=== PATIENT | female | born 1965 | race Caucasian/White ===

== ENCOUNTER 2016-12-23 18:22 | Observation (INO) | payer MEDICAID ==
[~2016-12-23] VITALS: Ht 167.6 cm; Wt 77.4 kg
--- NOTE | ~2016-12-23 | CR72 ---
[facility] A Service [facility] RADIOLOGY TEXT RESULTS PATIENT: SILVIANO NASCIMENTO LOCATION: [place] [address] : [birth year] UNIT #: [id number] AGE: [address]: Cha Henderson MD SEX: F ORDER DR: [id number] [place] [address] [id number] I MR#: [id number] Acc #: [id number] NAME: SILVIANO NASCIMENTO : 1965 SEX: F STUDY DATE/TIME: 12/23/2016 20:04 UNIT: SEDOF ROOM: [facility] STUDY DESCRIPTION: CR Chest Single View Portable Attending Physician: Savanna Silvestre M.D. Ordering Physician: Paco العراقي M.D. Primary Care Physician: Lupillo Orr M.D. MEDICAL IMAGING REPORT This report is preliminary unless electronic signature is present. EXAM Single view of the chest dated 12/23/2016. COMPARISON Single-view chest dated 02/26/2014. HISTORY Dizziness, chest pain, clammy, hot flashes and frontal headaches for 3 days. FINDINGS Single view of the chest was obtained. A single AP portable view of the chest shows both lungs to be clear. The heart is normal in size. The mediastinal contour is normal. No significant bone abnormalities are seen. IMPRESSION Normal portable chest. Dictated by... Maciej Elizalde M.D. THIS IS AN ELECTRONICALLY VERIFIED REPORT Maciej Elizalde M.D. at 12/24/2016 6:26 PM CPR/psc TD: 12/24/2016 01:46 JOB #: [id number] MEDICAL IMAGING REPORT [facility] A Service [facility] RADIOLOGY TEXT RESULTS PATIENT: SILVIANO NASCIMENTO LOCATION: [facility] : [birth year] UNIT #: [id number] AGE: [address]: Cha Henderson MD SEX: F ORDER DR: Page 1 of 1
--- NOTE | ~2016-12-23 | MR17 ---
[facility] A Service of [facility] RADIOLOGY TEXT RESULTS PATIENT: SILVIANO NACSIMENTO LOCATION: [address] 555[address]01 : [birth year] UNIT #: [id number] AGE: [address]: Cha Henderson MD SEX: F ORDER DR: [id number] [facility] [address] [place], [place] [address] [id number] I MR#: [id number] Acc #: [id number] NAME: SILVIANO NASCIMENTO : 1965 SEX: F STUDY DATE/TIME: 12/24/2016 16:02 UNIT: B ROOM: [facility] STUDY DESCRIPTION: MR Brain WWo Contrast Attending Physician: Cha Henderson M.D. Ordering Physician: Savanna Silvestre M.D. Primary Care Physician: Lupillo Orr M.D. MRI CENTER REPORT This report is preliminary unless electronic signature is present. EXAM Brain MRI with and without. HISTORY Vertigo. 51-year-old female presents with vertigo to the emergency room 12/23/2016. Patient had nausea, vertigo and unsteadiness on feet for 6 days. No known injury. History of essential hypertension and 4 days of frontal headaches. COMMENT MRI of the brain was performed prior to and following intravenous administration of 16 mL of MultiHance. Head CT comparison is from 12/23/2016. There is no evidence for a recent ischemic insult on the diffusion series. Midline structures are unremarkable. There is no extraaxial fluid collection. The visualized paranasal sinuses are clear. There is minor fluid or inflammatory change in the mastoid air cells. There is no MRI evidence for intracranial hemorrhage. The major arterial intracranial flow voids are maintained. There is iqlh-zh-[id number] white matter signal abnormality, which is nonspecific. It is probably due to small vessel disease particularly since there is a history of essential hypertension and coronary artery disease, but please correlate further clinically. There is no evidence for pathologic intracranial enhancement. No intracranial mass lesion or mass effect. IMPRESSION 1. No evidence for a recent ischemic insult on the diffusion series. 2. Probable sequelae of small vessel disease. 3. Small amount of fluid or inflammatory change, mastoid air cells. STAT * RESULT [facility] A Service of [facility] RADIOLOGY TEXT RESULTS PATIENT: SILVIANO NASCIMENTO LOCATION: [facility] 555-01 : [birth year] UNIT #: [id number] AGE: [address]: Cha Henderson MD SEX: F ORDER DR: Dictated by... Lisandra Wynne M.D. THIS IS AN ELECTRONICALLY VERIFIED REPORT Lisandra Wynne M.D. at 12/29/2016 5:40 PM CHUCKY/adis TD: 12/29/2016 14:28 JOB #: [id number] MRI CENTER REPORT Page 1 of 1 COPY
--- NOTE | ~2016-12-23 | EKG ---
PATIENT: SILVIANO NASCIMENTO UNIT #: [id number] Ventricular Rate: 66 BPM Atrial Rate: 66 BPM P-R Interval: 154 ms QRS Duration: 88 ms Q-T Interval: 378 ms QTC Calculation(Bezet): 396 ms P [place]: -17 degrees Calculated R [place]: -14 degrees Calculated T [place]: 117 degrees Diagnosis Line: Normal sinus rhythm Diagnosis Line: Cannot rule out Anterior infarct , age Diagnosis Line: undetermined Diagnosis Line: Abnormal ECG Diagnosis Line: When compared with ECG of 28-FEB-2014 06:08, Diagnosis Line: Nonspecific T wave abnormality now evident in Diagnosis Line: Lateral leads Diagnosis Line: Confirmed by JOLENE MARSHALL MD ([id number]) on Diagnosis Line: 12/25/2016 8:03:57 AM INTERPRETING MD: JOANNA MCKOY
--- NOTE | ~2016-12-23 | CO ---
Unit #: [id number] #: [id number] Patient: SILVIANO NASCIMENTO [id number] [address] [place], [place] [address] [id number] I MR#: [id number] NAME: SILVIANO NASCIMENTO ROOM: 555 Age: 51 Sex: F Admission Date: 12/24/2016 : 1965 Attending Physician: Cha Henderson M.D. Primary Care Physician: Lupillo Orr M.D. Consultation Date: 12/24/2016 CONSULTATION REPORT REASON FOR CONSULTATION Intermittent chest pain. HISTORY OF PRESENTING ILLNESS This is a 51-year-old female known to Dr. Hale with a prior history of coronary artery disease status post multiple PCIs and stents in the past, diabetes mellitus type 2, hypertension and hyperlipidemia. Her last cardiac cath in January 2014 showed left circumflex 70% to 80% at the ostium, OM-1 with patent stent, LAD mid 40%, proximal RCA 90% and mid RCA 80% with patent stents to the distal PDA and LV branch of RCA. At that time she had 2 stents placed to her RCA. She also has a history of tobacco abuse and chronic low back pain. She presented to the ER with reports of fatigue and weakness since Wednesday. States she spent all weekend in bed. She reports vertigo, as well as intermittent chest pain described as sharp, nonradiating chest pain lasting less than 1 minute. She states the pain occurs with activity and is accompanied with some diaphoresis and nausea. States before this weekend she was fairly active and does not usually have chest pain or shortness of breath with activities. She denies syncope, palpitations, orthopnea or PND. Currently she is chest pain free. PAST MEDICAL HISTORY 1. Coronary artery disease status post multiple PCIs and stents. 2. Diabetes mellitus type 2. 3. Hypertension. 4. Hyperlipidemia. 5. Cath January 2014 with stents x2 to RCA (see results above). 6. Tobacco abuse. 7. Chronic low back pain. PAST SURGICAL HISTORY 1. . 2. Right hand surgery. SOCIAL HISTORY She lives with her boyfriend. Smokes 1 pack per day. She denies illicit drug use. States she rarely drinks alcohol. FAMILY HISTORY Her mother and father both had coronary artery disease. REVIEW OF SYSTEMS Unit #: [id number] #: [id number] Patient: SILVIANO NASCIMENTO Positive for tiredness, fatigue, weakness, lightheadedness, cough with small amount of sputum, nausea, decreased appetite, diaphoresis, and intermittent sharp chest pain with activity. PHYSICAL EXAMINATION VITAL SIGNS: Temp 98.6, heart rate 78, respiratory rate 18, blood pressure 127/66. HEENT: Head is atraumatic and normocephalic. Pupils are equal and reactive to light. Mucous membranes are moist and intact. NECK: Supple. Trachea is midline. No JVD. LUNGS: Clear. Diminished in bases. Nonlabored respirations. CARDIOVASCULAR: S1, S2. Regular rate and rhythm. No significant murmurs, rubs or gallops. ABDOMEN: Soft, nontender, nondistended. Bowel sounds are active. EXTREMITIES: Pulses are palpable. No pedal edema. No cyanosis. NEUROLOGIC: Alert and oriented x3. Follows all commands equally and moves extremities without difficulty. DIAGNOSTIC STUDIES LABORATORY RESULTS: Sodium 130, potassium 3.7, chloride 97, BUN 14, creatinine 0.6, glucose 289. Hemoglobin 16.8, hematocrit 48.2, white blood cell count 7.6, platelets 271. TSH 5.27. Dckat-tw-fpqo troponin less than 0.05, and repeat troponin was less than 0.03. IMAGING STUDIES: CT of the head was normal. Chest x-ray showed no acute findings. CARDIOVASCULAR STUDIES: EKG shows sinus rhythm with a ventricular rate of 66 and nonspecific T wave abnormalities. ASSESSMENT 1. Chest pain, atypical for significant ischemic heart disease. 2. Hyponatremia secondary to elevated glucose. 3. Poorly controlled diabetes mellitus. 4. Questionable viral (1) like illness. 5. Coronary artery disease status post PCI and stent to RCA in 2013; 80% ostial left circumflex not dilated. 6. Lumbar spine disk disease. 7. COPD. 8. Hypertension. 9. Hyperlipidemia. 10. Diabetes mellitus. 11. Tobacco abuse. PLAN 1. Walking Lexiscan Cardiolite stress test. 2. Check fasting lipid profile. 3. Aspirin daily. 4. Plavix daily, plan for lifetime treatment with Plavix and aspirin due to diabetes and ostial left circumflex disease that cannot be treated with PCI. 5. Check a UA. 6. Discontinue pravastatin and start Lipitor. 7. Discontinue nitro paste. 8. Add Imdur 30 mg p.o. daily. 9. Advise smoking cessation. 10. We will plan to change Invokana to Jardiance at discharge to further Unit #: [id number] #: [id number] Patient: SILVIANO NASCIMENTO reduce risk of mortality. Dictated by... Glenys Blue APRN for Sharon Whitley TD: 12/25/2016 09:15 JOB #: [id number] CONSULTATION REPORT Page 1 of 1 X X CONSULTATION REPORT
--- NOTE | ~2016-12-23 | ST ---
Unit #: [id number] #: [id number] Patient: SILVIANO NASCIMENTO [id number] [address] [address] [id number] I MR#: [id number] NAME: SILVIANO NACSIMENTO : 1965 SEX: F STUDY DATE/TIME: 12/24/2016 UNIT: C5B ROOM: [facility] STUDY DESCRIPTION: Lexiscan stress test Attending Physician: Cha Henderson M.D. Primary Care Physician: Lupillo Orr M.D. CARDIOLOGY REPORT PROCEDURE PERFORMED EKG portion of a Lexiscan Cardiolite stress test. REASON FOR EXAM Chest pain with known history of coronary artery disease status post multiple PCIs and stents. DISCUSSION Baseline EKG reveals sinus rhythm with a ventricular rate of 60 beats per minute. No acute ST or T wave changes noted. Possible early repolarization. A total of 0.4 mg of Lexiscan was injected per protocol, followed by Cardiolite. The patient had chest pain, rated 3/10, which was described as tightness. There was shortness of breath. The pain and shortness of breath resolved in recovery. There were no ST or T wave changes to suggest ischemia. There were no sustained arrhythmias noted. The maximal heart rate was 79 beats per minute with a maximal blood pressure of 190/92 mmHg. The patient's blood pressure improved to 138/75 mmHg in recovery. IMPRESSION 1. Negative EKG portion of Lexiscan Cardiolite stress test. 2. The patient complained of chest pain, described as tightness, rated a 3/10. Chest pain resolved in recovery. 3. There were no ST or T wave changes to suggest ischemia. 4. There were no sustained arrhythmias noted. 5. Please correlate with Cardiolite images. Dictated by... Kyleigh Sparks APRN for Sharon Martinez TD: 12/24/2016 12:18 JOB #: [id number] Unit #: [id number] #: [id number] Patient: SILVIANO NASCIMENTO CARDIOLOGY REPORT Page 1 of 1 X CARDIOLOGY REPORT
--- NOTE | ~2016-12-23 | HP ---
Unit #: [id number] #: [id number] Patient: SILVIANO NASCIMENTO [id number] [address] [place], [place] [address] [id number] I MR#: [id number] NAME: SILVIANO NASCIMENTO ROOM: 555 Age: 51 Sex: F Admission Date: 12/23/2016 : 1965 Attending Physician: Savanna Silvestre M.D. Primary Care Physician: Lupillo Orr M.D. HISTORY AND PHYSICAL CHIEF COMPLAINT Chest pain and vertigo with accelerated hypertension. HISTORY This pleasant 51-year-old female with CAD, status post multivessel PCI and stents with normal ejection fraction, AODM, hypertension, was sent from [facility] emergency department for chest pain and vertigo. Patient states that she was well until about five days prior to admission when she began to experience postural vertigo worse with movement of her head. Denies any other neurologic symptoms with the vertigo, except for a frontal headache. Over the past five days has been experiencing multiple episodes of sharp, nonradiating substernal chest pain with diaphoresis and nausea lasting less than a minute, worse with exertion. She talked with her physician who told her to go to an emergency department for further workup and possible MRI. When she presented to [facility] ER, her blood pressure was 94/90. EKG does not show active ischemia, cardiac markers are negative. She was given aspirin and sent to this facility for further workup and treatment. Her current neurologic examination is normal. Head CT is negative. PAST MEDICAL HISTORY 1. CAD, status post multivessel PCI and stent with normal ejection fraction followed by Dr. Hale. 2. Essential hypertension. 3. Hyperlipidemia. 4. AODM x8 years. 5. . 6. Right hand surgery. ALLERGIES Codeine. HOME MEDICATIONS 1. Flexeril 10 mg t.i.d. p.r.n. 2. Plavix 75 mg daily. 3. Lisinopril 10 mg daily. 4. Metformin 1,000 mg b.i.d. 5. Lopressor 25 mg b.i.d. 6. Pravachol 40 mg q.h.s. FAMILY HISTORY Strongly positive for premature coronary artery disease. Unit #: [id number] #: [id number] Patient: SILVIANO NASCIMENTO SHAHRAM SOCIAL HISTORY The patient lives with her . She smokes about a pack per day of tobacco, seldom drinks alcohol. Would like to stop smoking. REVIEW OF SYSTEMS Notable for chest pain, feeling hot and having malaise, vertigo, hypertension, diabetes. Hyperlipidemia, tobacco use, CAD, above mentioned surgeries. All other systems were reviewed and otherwise negative. PHYSICAL EXAMINATION GENERAL: Pleasant 51-year-old moderately obese female currently in no acute distress. VITAL SIGNS: Current blood pressure is 181/81, temperature 98.1, pulse 65, respirations 14, O2 saturation is 99% on room air. HEENT: Eyes - PERRLA, extraocular muscles are intact. Pharynx is benign. TMs are clear. There is a little bit of cerumen but the TM itself looks to be normal. NECK: Supple without adenopathy, thyromegaly or carotid bruits. CHEST: Clear. CARDIAC: Normal S1 and S2 without S3, S4, or murmur. ABDOMEN: Bowel sounds are present. No hepatosplenomegaly, tenderness or masses. EXTREMITIES: Without clubbing, cyanosis or edema. Pedal pulses are present. SKIN: Reveals a rash both confluent but also papular in some areas, folliculitis as well. NEUROLOGIC: Patient is awake, alert and oriented. Her cranial nerves are intact. She has +5/5 strength throughout. Normal rapid alternating movements. Normal vakoko-pe-kzxe. Negative pronator drift. DIAGNOSTIC STUDIES ADMISSION LABS: Hematocrit is 48.2, normal white count, platelet count, and coags. SMA 12 - glucose is 289, sodium 130, which corrects to about 134 or 135, chloride is 97. Normal TSH. Cardiac markers are negative. IMAGING STUDIES: Chest x-ray - no acute disease. Head CT - no acute disease. CARDIOLOGY STUDIES: EKG - sinus rhythm, rate 66, fairly normal appearing. ASSESSMENT 1. Somewhat atypical chest pain but patient has known CAD and is status post multivessel PCI and stent with normal ejection fraction. 2. Accelerated hypertension. 3. Postural vertigo likely inner ear pathology. 4. AODM with hyperglycemia. 5. Tobacco use. 6. Hyperlipidemia. PLANS 1. Add aspirin and nitropaste to Plavix and current cardiac medicines. 2. Increase lisinopril and add p.r.n. hydralazine. 3. IV fluids and Antivert, will obtain MRI of the brain in the morning. 4. Serial cardiac enzymes, consult cardiology. 5. Smoking cessation counseling. 6. SCDs for DVT prophylaxis. Unit #: [id number] #: [id number] Patient: SILVIANO NASCIMENTO Dictated by Savanna Silvestre M.D. AML/ts TD: 12/24/2016 05:38 JOB #: [id number] HISTORY AND PHYSICAL Page 1 of 1 X Savanna Silvestre MD X HISTORY AND PHYSICAL
--- NOTE | ~2016-12-23 | CT71 ---
[facility] A Service [facility] RADIOLOGY TEXT RESULTS PATIENT: SILVIANO NASCIMENTO LOCATION: [place] [address] : [birth year] UNIT #: [id number] AGE: [address]: Cha Henderson MD SEX: F ORDER DR: [id number] [place] [id number] I MR#: [id number] #: [id number] NAME: SILVIANO NASCIMENTO : 1965 SEX: F STUDY DATE/TIME: 12/23/2016 20:14 UNIT: SEDOF ROOM: [facility] STUDY DESCRIPTION: CT Head Wo Contrast Attending Physician: Savanna Silvestre M.D. Ordering Physician: Paco العراقي M.D. Primary Care Physician: Lupillo Orr M.D. MEDICAL IMAGING REPORT This report is preliminary unless electronic signature is present. EXAM CT head without contrast dated 12/23/2016. COMPARISON CT head without contrast dated 05/16/2008. HISTORY Dizziness, chest pain, clammy, hot flashes and frontal headaches for [address] head was obtained without contrast in the axial plane as per the protocol. This CT exam was performed with one or more of the following radiation dose reduction techniques: Automatic exposure control, adjustment of mA and/or kV according to patient size, and iterative reconstruction. Axial noncontrast images were obtained from the skull base to the vertex. Ventricular size and configuration are normal. There is no evidence of acute infarct or hemorrhage. There are no extraaxial fluid collections. No mass lesion or mass effect is seen. There are no skull fractures. Nasal septum is deviated to the left. IMPRESSION Normal noncontrast head CT. Dictated by... [facility] A Service [facility] RADIOLOGY TEXT RESULTS PATIENT: SILVIANO NASCIMENTO LOCATION: [facility] : [birth year] UNIT #: [id number] AGE: [address]: Cha Henderson MD SEX: F ORDER DR: Maciej Elizalde M.D. THIS IS AN ELECTRONICALLY VERIFIED REPORT Maciej Elizalde M.D. at 12/24/2016 6:26 PM CPR/psc TD: 12/24/2016 02:38 JOB #: [id number] MEDICAL IMAGING REPORT Page 1 of 1
--- NOTE | ~2016-12-23 | TH ---
Unit #: [id number] #: [id number] Patient: SILVIANO NASCIMENTO [id number] [address] [address] [id number] I MR#: [id number] NAME: SILVIANO NASCIMENTO : 1965 SEX: F STUDY DATE/TIME: 12/24/2016 UNIT: C5B ROOM: [facility] STUDY DESCRIPTION: Lexiscan stress test - Nuclear Attending Physician: Cha Henderson M.D. Primary Care Physician: Lupillo Orr M.D. CARDIOLOGY REPORT PROCEDURE PERFORMED Lexiscan Cardiolite stress test - Nuclear portion. PROCEDURE Using technetium 99m-labeled Cardiolite, rest and stress SPECT images were obtained. Multiple SPECT images were obtained in various views, including horizontal and vertical long axis and short axis views of the left ventricle. Images were obtained by gated SPECT method. The patient was administered 9.97 mCi of Cardiolite at rest. The patient was administered 31.4 mCi of Cardiolite after Lexiscan infusion was completed. On the stress images, there is normal perfusion noted. The rest images show normal perfusion. Comparing the rest and stress images, there is no stress-induced ischemia noted. The left ventricular ejection fraction is calculated to be 78%. There is no focal wall motion abnormality seen. CONCLUSION 1. No stress-induced ischemia noted. 2. The left ventricular ejection fraction is calculated to be 78%. 3. There is no focal wall motion abnormality seen. 4. Normal Lexiscan Cardiolite stress test. Dictated by... Sharon Martinez/mayo TD: 12/24/2016 14:25 JOB #: [id number] CARDIOLOGY REPORT Page 1 of 1 X Kristin Marley MD <ELECTRONICALLY SIGNED> 01/21/17 1524 CARDIOLOGY REPORT
--- NOTE | ~2016-12-23 | DS ---
Unit #: [id number] #: [id number] Patient: SILVIANO VALENCIA [id number] [address] [address] [id number] I MR#: [id number] NAME: SILVIANO VALENCIA ROOM: 555 Age: 51 Sex: F Admission Date: 12/24/2016 : 1965 Discharge Date: 12/24/2016 Attending Physician: Cha Henderson M.D. Primary Care Physician: Lupillo Orr M.D. DISCHARGE SUMMARY PRINCIPAL DIAGNOSES 1. Musculoskeletal chest pain with negative walking Lexiscan Cardiolite. 2. Benign paroxysmal positional vertigo. 3. Coronary artery disease. 4. Diabetes mellitus type 2, noninsulin requiring and uncontrolled. 5. Hypertension. 6. Hyperlipidemia. 7. Pseudohyponatremia secondary to hyperglycemia. 8. Overweight. 9. Tobaccoism. 10. Accelerated hypotension to hypertension. CONSULTANTS Dr. Hale, cariology. PROCEDURES PERFORMED Walking Cardiolite stress test which was negative for ischemia. DIAGNOSTIC DATA IMAGING: CT scan of the head without contrast on 12/23/2016 which was normal. Chest x-ray on 12/23/2016 which was also normal. MRI of the brain with and without contrast is currently pending. CLINICAL HISTORY/HOSPITAL COURSE Ms. Valencia is a nice 51-year-old female who presented to the emergency department with a 5-day history of dizziness described as a combination of both vertigo and lightheadedness with changes in position and/or turning of the head. The patient's symptoms had progressed over the past four days and last night she subsequently developed some associated sharp stabbing chest pain. Please refer to history and physical for further details. cardiac workup in the emergency department was negative and the patient was placed in observation for further evaluation. Dr. Hale was consulted and the patient underwent stress test which was negative. Cardiac markers also remained negative. She will be discharged home on medications as outlined below. In regard to the patient's dizziness, she was placed on p.r.n. meclizine. MRI of the brain is still currently pending, but based upon history I suspect this represents an inner ear etiology. Anticipate if MRI is Unit #: [id number] #: [id number] Patient: SILVIANO VALENCIA SHAHRAM negative the patient will be discharged home later today. The patient was also found to have uncontrolled hyperlipidemia and her Lipitor was increased. She was also placed on Imdur and Plavix. She can be discharged home later today if MRI is negative. DISCHARGE CONDITION Stable. DISPOSITION Discharge to home. DISCHARGE MEDICATIONS 1. Metformin 1000 mg b.i.d. 2. Meclizine 25 mg half to 1 tablet p.o. t.i.d. p.r.n. dizziness. 3. Lipitor 80 mg at bedtime. 4. Metoprolol tartrate 25 mg b.i.d. 5. Lisinopril 20 mg daily. 6. Aspirin 81 mg daily. 7. Plavix 75 mg daily. 8. Flexeril 10 mg p.o. t.i.d. 9. Invokana 100 mg daily. 10. Imdur ER 30 mg daily. 11. Nitroglycerin 0.4 mg sublingual q.5 minutes p.r.n. chest pain. DISCHARGE DIET The patient was instructed to follow a heart healthy diet. DISCHARGE INSTRUCTIONS She is instructed to refrain from any further tobacco use. ACTIVITY She can increase her activity as tolerated. FOLLOWUP The patient will follow up with her primary care provider, Dr. Orr, in one week. Dictated by... Cha Henderson M.D. VANI/anna TD: 12/25/2016 11:26 JOB #: [id number] DISCHARGE SUMMARY Page 1 of 1 X Cha Henderson MD X DISCHARGE SUMMARY
[~2016-12-23 18:22] MED LIST: AMARYL PO; ASPIRIN81 M1; ASPIRIN81 M2 PO; ASPIRIN81 MG PO; BACTRIM DS TABL1 TA1 PO; CLOPIDOGREL75 MG PO; FAMOTIDINE20 MG PO; FLEXERIL PO; FLEXERIL10 MG PO; GLUCOTROL PO; HCTZ PO; LIPITOR20 MG PO; LISINOPRIL PO; LISINOPRIL5 MG PO; LOPID600 MG PO; LOSARTAN POTASS50 MG PO; METFORMIN HCL500 M1 PO; METFORMIN PO; METOPROLOL TAR25 MG PO; METOPROLOL TART25 MG PO; NITROGLYCERIN0.4 MG SL; NO MEDICATIONS; PEPCID AC20 M2; PEPCID40 MG PO; PLAVIX PO; PREDNISONE50 MG PO; PREVPAC PA1 COMB.PKG; PRINIVIL20 M1 PO; SIMVASTATIN20 MG PO; ULTRAM PO; VOLTAREN50 MG PO; VOLTAREN75 MG PO; ZOCOR20 MG PO
[2016-12-23] MEDS ORDERED: INVOKANA100 MG PO (18:33)
[2016-12-23] MEDS ORDERED: METFORMIN HCL1000 M1 PO (18:34)
[2016-12-23] MEDS ORDERED: FLEXERIL10 MG (18:34)
[2016-12-23] MEDS ORDERED: CLOPIDOGREL75 MG PO (18:34)
[2016-12-23] MEDS ORDERED: LOPRESSOR PO (18:34)
[2016-12-23] MEDS ORDERED: LISINOPRIL10 MG PO (18:34)
[2016-12-23] MEDS ORDERED: PRAVASTATIN SOD40 MG (18:35)
[2016-12-23 19:30] LABS: POC - CKMB <1.0 ng/mL (0.0-7.9); POC - MYOGLOBIN 23.9 ng/mL (0.0-169.0); POC - TROPONIN <0.05 ng/mL (<=0.05)
[2016-12-23 19:41] LABS: BASOPHIL% 0.5 % (0-2.5); EOSINOPHIL% 0.4 % (0.0-7.0); HEMATOCRIT 48.2 % (35.0-45.0); HEMOGLOBIN 16.8 gm/dL (12.0-16.0); LYMPHOCYTE# 2.6 X10e3 (1.0-3.5); LYMPHOCYTE% 33.7 % (17.0-45.0); MEAN CELL VOLUME 90.7 FL (83-96); MEAN CORPUSCULAR HEMOGLOBIN 31.5 PG (28-34); MEAN CORPUSCULAR HGB CONC 34.8 g/dL (30-36); MEAN PLATELET VOLUME 8.2 FL (6.5-11.5); MONOCYTE# 0.4 X10e3 (0-1.0); MONOCYTE% 4.6 % (3.0-12.0); NEUTROPHIL# 4.6 X10e3 (1.5-7.1); NEUTROPHIL% 60.8 % (40-75); PLATELET COUNT 271 X10e3 (140-420); RED BLOOD COUNT 5.31 X10e (3.90-5.30); RED CELL DISTRIBUTION WIDTH 13.2 % (11.0-15.5); WHITE BLOOD COUNT 7.6 X10e3 (4.0-10.5)
[2016-12-23 19:44] LABS: DIFF IND NO
[2016-12-23 19:48] LABS: PROTHROMBIN TIME (PATIENT) 11.7 SECONDS (9.5-12.4)
[2016-12-23 19:55] LABS: ALBUMIN SERUM 4.5 g/dL (3.5-5.0); BILIRUBIN,TOTAL 0.8 mg/dL (0.2-2.0); BUN/CREATININE RATIO 23.33; CALCIUM SERUM 9.3 mg/dL (8.4-10.2); CREATININE SERUM 0.6 mg/dL (0.6-1.4); POTASSIUM 3.7 mmol/L (3.5-5.1)
[2016-12-23 19:56] LABS: PARTIAL THROMBOPLASTIN TIME 28.5 SECONDS (25.6-38.1)
[2016-12-24 00:11] LABS: CK TOTAL 33 IU/L (26-140)
[2016-12-24 11:17] LABS: CHOLESTEROL 243 mg/dL (0-200); HDL CHOLESTEROL 39 mg/dL (35-95); LDL/HDL RATIO 4 RATIO (0-4); TRIGLYCERIDES 269 mg/dL (10-160)
[2016-12-24 11:21] LABS: LDL CHOLESTEROL 150 mg/dL (-130)
[2016-12-24] MEDS ORDERED: ANTIVERT PO (19:24)
[2016-12-24] MEDS ORDERED: LIPITOR80 MG PO (19:25)
[2016-12-24] MEDS ORDERED: IMDUR-ER30 M1 PO (19:26)
[2016-12-24] MEDS ORDERED: NITROGLYGERIN0.4 MG SL (19:27)
== END 2016-12-24 20:21 | disposition home or self-care (01) ==
LOC: SED 18:22 → C5B 21:31 → SED 21:31 → C5B 21:31 → SEDOF 21:31 → C5B 23:03 → SEDOF 12-24 00:15 → C5B 12-24 07:45 → UNDODEPER 12-24 22:27
PROVIDERS: Internal Medicine; Internal Medicine Cardiovascular Disease
DX: R07.89 Other chest pain (principal); H81.10 Benign paroxysmal vertigo, unspecified ear; I25.10 Atherosclerotic heart disease of native coronary artery without angina pectoris; E11.65 Type 2 diabetes mellitus with hyperglycemia; I10 Essential (primary) hypertension; E78.5 Hyperlipidemia, unspecified; E87.1 Hypo-osmolality and hyponatremia; E66.3 Overweight; Z88.5 Allergy status to narcotic agent; Z79.02 Long term (current) use of antithrombotics/antiplatelets; Z79.82 Long term (current) use of aspirin; Z79.84 Long term (current) use of oral hypoglycemic drugs; Z79.899 Other long term (current) drug therapy; Z95.5 Presence of coronary angioplasty implant and graft
CPT/HCPCS: 36415; 70450; 70553; 71010; 78452; 80053; 80061; 82550; 82553; 82947; 83874; 84443; 84484; 85025; 85610; 85730; 93005; 93017; 94760; 99285; 99406; A9500; A9577; G0378; J1815; J2785